=== PATIENT | male | born 1985 | race Caucasian/White ===

== ENCOUNTER 2018-12-15 21:35 | Emergency (ER) | payer SELFPAY ==
[~2018-12-15] VITALS: Ht 177.8 cm; Wt 68.0 kg
[~2018-12-15 21:35] MED LIST: CEPH-507 PO; HYDR-4226 PO
[2018-12-15 22:00] LABS: BASOPHILS # (AUTO) 0.1 10^3/uL (0.0-0.1); BASOPHILS % (AUTO) 1 % (0-10); EOSINOPHILS # (AUTO) 0.1 10^3/uL (0.0-0.3); EOSINOPHILS % (AUTO) 2 % (0-10); HEMATOCRIT 47 % (40-54); HEMOGLOBIN 15.8 G/DL (13.3-17.7); LYMPHOCYTES # (AUTO) 1.9 X 10^3 (1.0-4.0); LYMPHOCYTES % (AUTO) 34 % (12-44); MEAN CORPUSCULAR HEMOGLOBIN 30 PG (25-34); MEAN CORPUSCULAR HGB CONC 34 G/DL (32-36); MEAN CORPUSCULAR VOLUME 87 FL (80-99); MEAN PLATELET VOLUME 9.8 FL (7.4-10.4); MONOCYTES # (AUTO) 0.7 X 10^3 (0.0-1.0); MONOCYTES % (AUTO) 13 % (0-12); NEUTROPHILS # (AUTO) 2.9 X 10^3 (1.8-7.8); NEUTROPHILS % (AUTO) 50 % (42-75); PLATELET COUNT 307 10^3/uL (130-400); RED CELL DISTRIBUTION WIDTH 12.8 % (10.0-14.5); WHITE BLOOD COUNT 5.7 10^3/uL (4.3-11.0)
[2018-12-15] MEDS ORDERED: CYCLOBENZAPRINE 10 MG (FLEXERIL) TAB PO SCH (22:00)
[2018-12-15 22:11] LABS: INR 0.8 (0.8-1.4); PROTHROMBIN TIME PATIENT 11.8 SEC (12.2-14.7)
[2018-12-15 22:19] LABS: ALANINE AMINOTRANSFERASE 23 U/L (0-55); ALKALINE PHOSPHATASE 76 U/L (40-136); BILIRUBIN,TOTAL 0.3 MG/DL (0.1-1.0); BUN/CREATININE RATIO 8; CALCIUM 10.2 MG/DL (8.5-10.1); CARBON DIOXIDE 27 MMOL/L (21-32); CHLORIDE 102 MMOL/L (98-107); CREATININE SERUM 1.17 MG/DL (0.60-1.30); GFR ESTIMATED > 60; GLUCOSE 85 MG/DL (70-105); MAGNESIUM 2.6 MG/DL (1.8-2.4); POTASSIUM 3.8 MMOL/L (3.6-5.0); SODIUM 140 MMOL/L (135-145); TOTAL PROTEIN 7.9 GM/DL (6.4-8.2)
--- NOTE | 2018-12-15 22:33 | ED Chest Pain ---
General Chief Complaint: Chest Wall Stated Complaint: PULLING FEELING IN CHEST Nursing Triage Note: PT AMB TO ROOM #7 W/O DIFFICULTY. A&OX4. C/O LT SIDED CHEST WALL DISCOMFORT FOR X2 DAYS. PT REPORTS X2 DAYS AGO HE PULLED A MUSCLE IN HIS LT CHEST WALL AND BEGAN TO FEEL SOB THROUGHOUT THIS DAY. REPORTS INTERMITTENT DRY COUGH. DENIES CARDIAC HX. Nursing Sepsis Screen: No Definite Risk Source: patient Exam Limitations: no limitations History of Present Illness Date Seen by Provider: Dec 15, 2018 Time Seen by Provider: 21:43 Initial Comments 33-year-old male who presents to the emergency room with complaints of left- sided chest wall pain and discomfort for the past 2 days. He reports that he was lifting something heavy 2 days ago when he pulled a muscle in his chest but began to pain with deep breathing throughout the day. He denies dizziness or lightheadedness, or cardiac history. Timing/Duration: 2-3 days Severity/Quality: tightness Prior CP/Workup: no prior chest pain Associated Symptoms: denies symptoms Allergies and Home Medications Allergies Coded Allergies: ibuprofen (Unverified Allergy, Unknown, 12/16/15) Home Medications Cephalexin 500 Mg Capsule, 500 MG PO TID Prescribed by: KLAUDIA DAWN on 12/16/15 181 Cyclobenzaprine HCl 10 Mg Tablet, 10 MG PO TID PRN for MUSCLE SPASMS Prescribed by: JENNA JUNG on 12/15/18 223 Hydrocodone/Acetaminophen 1 Each Tablet, 1 EACH PO Q4H PRN for PAIN Prescribed by: KLAUDIA DAWN on 12/16/15 181 Patient Home Medication List Home Medication List Reviewed: Yes Review of Systems Review of Systems Constitutional: see HPI; No chills, No fever Cardiovascular: See HPI, Other (chest wall pain ) All Other Systems Reviewed Negative Unless Noted: Yes Past Kluwqvy-Fqnvzc-Menwle Hx Past Med/Social Hx: Reviewed Nursing Past Med/Soc Hx Patient Social History Alcohol Use: Denies Use Recreational Drug Use: Yes Drug of Choice: THC Smoking Status: Current Everyday Smoker Type Used: Cigarettes 2nd Hand Smoke Exposure: Yes Recent Foreign Travel: No Contact w/Someone Who Travel: No Recent Infectious Disease Expo: No Seasonal Allergies Seasonal Allergies: No Past Medical History Surgeries: No Respiratory: No Cardiac: No Neurological: No Reproductive Disorders: No Gastrointestinal: No Musculoskeletal: No Endocrine: No Cancer: No Psychosocial: No Integumentary: No Blood Disorders: No Family Medical History Reviewed Nursing Family Hx Physical Exam Vital Signs Vital Signs - First Documented 12/15/18 21:42 Temp 98.0 Pulse 86 Resp 18 B/P (MAP) 138/84 (102) Pulse Ox 99 O2 Delivery Room Air Capillary Refill : Less Than 3 Seconds Height, Weight, BMI Height: 5'10.00" Weight: 150lbs. oz. 68.522978kl; BMI Method:Stated General Appearance: No Apparent Distress, WD/WN Neck: Full Range of Motion, Normal Inspection, Non Tender Respiratory: Lungs Clear, Normal Breath Sounds, No Accessory Muscle Use, No Respiratory Distress, Other (chest wall tenderness ) Cardiovascular: Regular Rate, Rhythm, No Edema, No Gallop, No JVD, No Murmur, Normal Peripheral Pulses Gastrointestinal: Normal Bowel Sounds, No Organomegaly, No Pulsatile Mass, Non Tender Extremity: Normal Capillary Refill Neurologic/Psychiatric: Alert, Oriented x3, Normal Mood/Affect Skin: Normal Color, Warm/Dry Progress/Results/Core Measures Results/Orders Lab Results Laboratory Tests Test 12/15/18 21:53 Range/Units White Blood Count 5.7 4.3-11.0 10^3/uL Red Blood Count 5.36 4.35-5.85 10^6/uL Hemoglobin 15.8 13.3-17.7 G/DL Hematocrit 47 40-54 % Mean Corpuscular Volume 87 80-99 FL Mean Corpuscular Hemoglobin 30 25-34 PG Mean Corpuscular Hemoglobin Concent 34 32-36 G/DL Red Cell Distribution Width 12.8 10.0-14.5 % Platelet Count 307 130-400 10^3/uL Mean Platelet Volume 9.8 7.4-10.4 FL Neutrophils (%) (Auto) 50 42-75 % Lymphocytes (%) (Auto) 34 12-44 % Monocytes (%) (Auto) 13 H 0-12 % Eosinophils (%) (Auto) 2 0-10 % Basophils (%) (Auto) 1 0-10 % Neutrophils # (Auto) 2.9 1.8-7.8 X 10^3 Lymphocytes # (Auto) 1.9 1.0-4.0 X 10^3 Monocytes # (Auto) 0.7 0.0-1.0 X 10^3 Eosinophils # (Auto) 0.1 0.0-0.3 10^3/uL Basophils # (Auto) 0.1 0.0-0.1 10^3/uL Prothrombin Time 11.8 L 12.2-14.7 SEC INR Comment 0.8 0.8-1.4 Activated Partial Thromboplast Time 32 24-35 SEC Sodium Level 140 135-145 MMOL/L Potassium Level 3.8 3.6-5.0 MMOL/L Chloride Level 102 98-107 MMOL/L Carbon Dioxide Level 27 21-32 MMOL/L Anion Gap 11 5-14 MMOL/L Blood Urea Nitrogen 9 7-18 MG/DL Creatinine 1.17 0.60-1.30 MG/DL Estimat Glomerular Filtration Rate > 60 BUN/Creatinine Ratio 8 Glucose Level 85 70-105 MG/DL Calcium Level 10.2 H 8.5-10.1 MG/DL Corrected Calcium 8.5-10.1 MG/DL Magnesium Level 2.6 H 1.8-2.4 MG/DL Total Bilirubin 0.3 0.1-1.0 MG/DL Aspartate Amino Transf (AST/SGOT) 20 5-34 U/L Alanine Aminotransferase (ALT/SGPT) 23 0-55 U/L Alkaline Phosphatase 76 40-136 U/L Myoglobin 44.1 10.0-92.0 NG/ML Troponin I < 0.028 <0.028 NG/ML Total Protein 7.9 6.4-8.2 GM/DL Albumin 5.0 H 3.2-4.5 GM/DL My Orders Orders - BERNOT,JENNA Cbc With Automated Diff (12/15/18 21:43) Magnesium (12/15/18 21:43) Chest 1 View, Ap/Pa Only (12/15/18 21:43) Ekg Tracing (12/15/18 21:43) Cardiac Profile 1 (12/15/18 21:43) Comprehensive Metabolic Panel (12/15/18 21:43) Myoglobin Serum (12/15/18 21:43) Protime With Inr (12/15/18 21:43) Partial Thromboplastin Time (12/15/18 21:43) O2 (12/15/18 21:43) Monitor-Rhythm Ecg Trace Only (12/15/18 21:43) Ed Iv/Invasive Line Start (12/15/18 21:43) Cyclobenzaprine Tablet (Flexeril Tablet) (12/15/18 22:00) Vital Signs/I&O 12/15/18 12/15/18 21:42 22:50 Temp 98.0 98.0 Pulse 86 86 Resp 18 18 B/P (MAP) 138/84 (102) 120/68 (85) Pulse Ox 99 99 O2 Delivery Room Air Room Air Blood Pressure Mean: 102 Progress Progress Note : Time: 22:32 Progress Note I have seen and evaluated the patient. I have reviewed the lab, ekg, and imaging studies with him. His muscle tightness has resolved after Flexeril. He agrees with plan of care, plans for discharge, return precautions were given. Departure Impression Primary Impression: Chest wall pain Disposition: HOME, SELF-CARE Condition: Stable/Unchanged Departure-Patient Inst. Decision time for Depature: 22:32 Referrals: NO,LOCAL PHYSICIAN (PCP/Family) Primary Care Physician Patient Instructions: Pleuritic Chest Pain (DC) Add. Discharge Instructions: You may use Tylenol as directed by the bottle for pain relief. Use the muscle relaxers as needed for discomfort. Follow-up with your primary care provider within 1 week for recheck. Return back to the emergency room for worsening symptoms or concerns as needed. All discharge instructions reviewed with patient and/or family. Voiced understanding. Scripts Cyclobenzaprine HCl (Cyclobenzaprine HCl) 10 Mg Tablet 10 MG PO TID PRN for MUSCLE SPASMS, #14 TAB Prov: JENNA JUNG 12/15/18 JENNA JUNG Dec 15, 2018 22:32
[2018-12-15] MEDS ORDERED: CYCL10TA9 PO (22:34)
[2018-12-15 22:50] VITALS: BP 120/68
--- NOTE | 2018-12-16 06:35 | Diagnostic Imaging Report ---
INDICATION: Left-sided chest wall discomfort for 2 days. Pulled a muscle on his chest 2 days ago and started feeling shortness of breath today. FINDINGS: Frontal view of the chest demonstrates lungs to be clear. The heart, mediastinum, pulmonary vascularity and visualized bony thorax are normal. No pleural effusion or pneumothorax is present. IMPRESSION: Normal chest. Dictated by: Dictated on workstation # [id number]
== END 2018-12-15 22:50 | disposition home or self-care (01) ==
LOC: EDUNIT# 21:35 → ER 21:36
DX: R07.89 Other chest pain (principal); F12.10 Cannabis abuse, uncomplicated; F17.210 Nicotine dependence, cigarettes, uncomplicated; Z88.6 Allergy status to analgesic agent
CPT/HCPCS: 36415; 71045; 80053; 83735; 83874; 84484; 85025; 85610; 85730; 93005; 93041

== ENCOUNTER 2020-09-05 20:36 | Emergency (ER) | payer SELFPAY ==
[~2020-09-05] VITALS: Ht 177.8 cm; Wt 72.6 kg
[~2020-09-05 20:36] MED LIST changes: +CYCL10TA9 PO
[2020-09-05] MEDS ORDERED: ASPIRIN 81 MG CHEW (CHILDREN'S ASA) PO ONE (20:45)
[2020-09-05 20:52] LABS: BASOPHILS # (AUTO) 0.1 10^3/uL (0.0-0.1); BASOPHILS % (AUTO) 1 % (0-10); EOSINOPHILS # (AUTO) 0.1 10^3/uL (0.0-0.3); EOSINOPHILS % (AUTO) 2 % (0-10); HEMATOCRIT 43 % (40-54); HEMOGLOBIN 14.2 g/dL (13.3-17.7); LYMPHOCYTES # (AUTO) 2.5 10^3/uL (1.0-4.0); LYMPHOCYTES % (AUTO) 31 % (12-44); MEAN CORPUSCULAR HEMOGLOBIN 30 pg (25-34); MEAN CORPUSCULAR HGB CONC 33 g/dL (32-36); MEAN CORPUSCULAR VOLUME 89 fL (80-99); MEAN PLATELET VOLUME 9.7 fL (9.0-12.2); MONOCYTES # (AUTO) 0.7 10^3/uL (0.0-1.0); MONOCYTES % (AUTO) 8 % (0-12); NEUTROPHILS # (AUTO) 4.6 10^3/uL (1.8-7.8); NEUTROPHILS % (AUTO) 58 % (42-75); PLATELET COUNT 345 10^3/uL (130-400); WHITE BLOOD COUNT 7.9 10^3/uL (4.3-11.0)
--- NOTE | 2020-09-05 20:54 | ED Chest Pain ---
General Stated Complaint: CHEST PAIN;L ARM NUMBNESS Source: patient History of Present Illness Date Seen by Provider: Sep 05, 2020 Time Seen by Provider: 20:40 Initial Comments PT ARRIVES VIA POV FROM HOME C/O LEFT CHEST PAIN AND LEFT ARM NUMBNESS X 1 HOUR BEGAN WHILE SITTING ON BED, PLAYING ON PHONE NOTHING WORSENS OR IMPROVES PAIN HAS NOT TAKEN ANYTHING FOR PAIN NO SWEATS NO SHORTNESS OF BREATH NO SWELLING IN LEGS/ FEET OR PAIN IN CALVES NO NAUSEA/VOMITING/DIARRHEA C/O ANXIETY NO FEVER OR RECENT ILLNESS NO GI SYMPTOMS NO LOSS OF TASTE/SMELL NO HEADACHE NO BODY ACHES NO KNOWN EXPOSURE TO COVID-19 HAS HISTORY OF SAME--SEEN HERE IN 2019 FOR THIS AND WAS DX WITH CHEST WALL PAIN AND ANXIETY. Allergies and Home Medications Allergies Coded Allergies: ibuprofen (Unverified Allergy, Unknown, 12/16/15) Home Medications Cephalexin 500 Mg Capsule, 500 MG PO TID Prescribed by: KLAUDIA DAWN on 12/16/151811 Cyclobenzaprine HCl 10 Mg Tablet, 10 MG PO TID PRN for MUSCLE SPASMS Prescribed by: JENNA JUNG on 12/15/182233 Fluconazole 200 Mg Tablet, 200 MG PO DAILY Prescribed by: DOMINICK SANCHEZ on 09/05/202143 Hydrocodone/Acetaminophen 1 Each Tablet, 1 EACH PO Q4H PRN for PAIN Prescribed by: KLAUDIA DAWN on 12/16/151809 Hydroxyzine Pamoate 50 Mg Capsule, 50 MG PO Q6H PRN for ANXIETY Prescribed by: DOMINICK SANCHEZ on 09/05/202143 Methylprednisolone 4 Mg Tab.ds.pk, 4 MG PO UD PER DOSE PACK INSTRUCTIONS Prescribed by: DOMINICK SANCHEZ on 09/05/202143 Nitrofurantoin Monohyd/M-Cryst 100 Mg Capsule, 1 TAB PO BID Prescribed by: DOMINICK SANCHEZ on 09/05/202143 Patient Home Medication List Home Medication List Reviewed: Yes Review of Systems Review of Systems Constitutional: no symptoms reported EENTM: No Symptoms Reported Respiratory: No Symptoms Reported Cardiovascular: See HPI, Chest Pain Gastrointestinal: No Symptoms Reported Genitourinary: No Symptoms Reported Musculoskeletal: see HPI Skin: no symptoms reported Psychiatric/Neurological: See HPI, Anxiety, Paresthesia Endocrine: No Symptoms Reported Hematologic/Lymphatic: No Symptoms Reported Past Hoocool-Nmojlg-Lifejd Hx Past Med/Social Hx: Reviewed and Corrections made Patient Social History Alcohol Use: Denies Use Recreational Drug Use: Yes (THC, METH, OPIATES, BENZO'S) Drug of Choice: THC, METH, OPIATES, BENZO'S Smoking Status: Current Everyday Smoker (1/2 PPD) Type Used: Cigarettes 2nd Hand Smoke Exposure: Yes Seasonal Allergies Seasonal Allergies: No Past Medical History Surgeries: No Respiratory: No Cardiac: No Neurological: No Reproductive Disorders: No Genitourinary: No Gastrointestinal: No Musculoskeletal: No Endocrine: No HEENT: No Cancer: No Psychosocial: Yes Anxiety Integumentary: No Blood Disorders: No Physical Exam Vital Signs Vital Signs - First Documented 09/05/20 20:40 Temp 36.2 Pulse 83 Resp 18 B/P (MAP) 149/102 (118) Pulse Ox 100 O2 Delivery Room Air Capillary Refill : Height, Weight, BMI Height: 5'10.00" Weight: 150lbs. oz. 68.326112sd; BMI Method:Stated General Appearance: No Apparent Distress, WD/WN, Anxious, Other (CONSTANT MOVEMENTS, DIFFICULT TO KEEP ON SUBJECT, MALODOROUS) HEENT: PERRL/EOMI Neck: Full Range of Motion, Normal Inspection, Non Tender, Supple Respiratory: Normal Breath Sounds, No Accessory Muscle Use, No Respiratory Distress, Other (LEFT UPPER CHEST TENDER TO PALPATION--REPRODUCES PAIN ) Cardiovascular: Regular Rate, Rhythm, No Edema, No JVD, No Murmur, Normal Peripheral Pulses Gastrointestinal: Non Tender, Soft Extremity: Normal Capillary Refill, Normal Inspection, Normal Range of Motion, Non Tender, No Calf Tenderness, No Pedal Edema Neurologic/Psychiatric: Alert, Oriented x3, No Motor/Sensory Deficits, filing or registry clerk II- XII Norm as Tested Skin: Normal Color, Warm/Dry, Tattoos/Piercings Progress/Results/Core Measures Results/Orders Lab Results Laboratory Tests Test 09/05/20 20:40 09/05/20 21:00 Range/Units White Blood Count 7.9 4.3-11.0 10^3/uL Red Blood Count 4.82 4.30-5.52 10^6/uL Hemoglobin 14.2 13.3-17.7 g/dL Hematocrit 43 40-54 % Mean Corpuscular Volume 89 80-99 fL Mean Corpuscular Hemoglobin 30 25-34 pg Mean Corpuscular Hemoglobin Concent 33 32-36 g/dL Red Cell Distribution Width 11.8 10.0-14.5 % Platelet Count 345 130-400 10^3/uL Mean Platelet Volume 9.7 9.0-12.2 fL Immature Granulocyte % (Auto) 0 % Neutrophils (%) (Auto) 58 42-75 % Lymphocytes (%) (Auto) 31 12-44 % Monocytes (%) (Auto) 8 0-12 % Eosinophils (%) (Auto) 2 0-10 % Basophils (%) (Auto) 1 0-10 % Neutrophils # (Auto) 4.6 1.8-7.8 10^3/uL Lymphocytes # (Auto) 2.5 1.0-4.0 10^3/uL Monocytes # (Auto) 0.7 0.0-1.0 10^3/uL Eosinophils # (Auto) 0.1 0.0-0.3 10^3/uL Basophils # (Auto) 0.1 0.0-0.1 10^3/uL Immature Granulocyte # (Auto) 0.0 0.0-0.1 10^3/uL Prothrombin Time 13.0 12.2-14.7 SEC INR Comment 0.9 0.8-1.4 Activated Partial Thromboplast Time 31 24-35 SEC Sodium Level 140 135-145 MMOL/L Potassium Level 3.8 3.6-5.0 MMOL/L Chloride Level 104 98-107 MMOL/L Carbon Dioxide Level 27 21-32 MMOL/L Anion Gap 9 5-14 MMOL/L Blood Urea Nitrogen 12 7-18 MG/DL Creatinine 1.08 0.60-1.30 MG/DL Estimat Glomerular Filtration Rate > 60 BUN/Creatinine Ratio 11 Glucose Level 100 70-105 MG/DL Calcium Level 9.6 8.5-10.1 MG/DL Corrected Calcium 9.2 8.5-10.1 MG/DL Magnesium Level 2.4 1.6-2.4 MG/DL Total Bilirubin 0.3 0.1-1.0 MG/DL Aspartate Amino Transf (AST/SGOT) 22 5-34 U/L Alanine Aminotransferase (ALT/SGPT) 26 0-55 U/L Alkaline Phosphatase 66 40-136 U/L Total Creatine Kinase 77 30-200 U/L Creatine Kinase MB 1.0 <6.6 NG/ML Myoglobin 39.6 10.0-92.0 NG/ML Troponin I < 0.028 <0.028 NG/ML B-Type Natriuretic Peptide < 10.0 <100.0 PG/ML Total Protein 7.4 6.4-8.2 GM/DL Albumin 4.5 3.2-4.5 GM/DL Amylase Level 48 25-125 U/L Lipase 28 8-78 U/L Serum Alcohol < 10 <10 MG/DL Urine Color YELLOW Urine Clarity CLEAR Urine pH 7.0 5-9 Urine Specific [place] 1.020 1.016-1.022 Urine Protein NEGATIVE NEGATIVE Urine Glucose (UA) NEGATIVE NEGATIVE Urine Ketones NEGATIVE NEGATIVE Urine Nitrite NEGATIVE NEGATIVE Urine Bilirubin NEGATIVE NEGATIVE Urine Urobilinogen 0.2 < = 1.0 MG/DL Urine Leukocyte Esterase NEGATIVE NEGATIVE Urine RBC (Auto) NEGATIVE NEGATIVE Urine RBC 0-2 /HPF Urine WBC 2-5 /HPF Urine Squamous Epithelial Cells 0-2 /HPF Urine Crystals PRESENT H /LPF Urine Amorphous Sediment FEW LINDSEY PHOSPHATE H /LPF Urine Bacteria LARGE H /HPF Urine Casts NONE /LPF Urine Mucus NEGATIVE /LPF Urine Yeast MODERATE H /HPF Urine Culture Indicated YES Urine Opiates Screen POSITIVE H NEGATIVE Urine Oxycodone Screen NEGATIVE NEGATIVE Urine Methadone Screen NEGATIVE NEGATIVE Urine Propoxyphene Screen NEGATIVE NEGATIVE Urine Barbiturates Screen NEGATIVE NEGATIVE Ur Tricyclic Antidepressants Screen NEGATIVE NEGATIVE Urine Phencyclidine Screen NEGATIVE NEGATIVE Urine Amphetamines Screen POSITIVE H NEGATIVE Urine Methamphetamines Screen POSITIVE H NEGATIVE Urine Benzodiazepines Screen POSITIVE H NEGATIVE Urine Cocaine Screen NEGATIVE NEGATIVE Urine Cannabinoids Screen POSITIVE H NEGATIVE My Orders Orders - DOMINICK SANCHEZ DO Cbc With Automated Diff (09/05/20 20:41) Magnesium (09/05/20 20:41) Chest 1 View, Ap/Pa Only (09/05/20 20:41) Ekg Tracing (09/05/20 20:41) Comprehensive Metabolic Panel (09/05/20 20:41) Myoglobin Serum (09/05/20 20:41) Protime With Inr (09/05/20 20:41) Partial Thromboplastin Time (09/05/20 20:41) Monitor-Rhythm Ecg Trace Only (09/05/20 20:41) Ed Iv/Invasive Line Start (09/05/20 20:41) Creatine Kinase (09/05/20 20:41) Creatine Kinase Mb (09/05/20 20:41) Lipase (09/05/20 20:41) Amylase (09/05/20 20:41) BNP (09/05/20 20:41) Aspirin Chewable Tablet (Baby Aspirin Ch (09/05/20 20:45) Drug Screen Stat (Urine) (09/05/20 20:41) Ua Culture If Indicated (09/05/20 20:41) Alcohol (09/05/20 20:40) Troponin I (09/05/20 20:40) Urine Culture (09/05/20 21:00) Medications Given in ED Current Medications Medications Dose Ordered Sig/Yaakov Route Start Time Stop Time Status Last Admin Dose Admin Aspirin 324 mg ONCE ONCE PO 09/05/20 20:45 09/05/20 20:46 DC 09/05/20 20:52 324 MG Vital Signs/I&O 09/05/20 20:40 Temp 36.2 Pulse 83 Resp 18 B/P (MAP) 149/102 (118) Pulse Ox 100 O2 Delivery Room Air Progress Progress Note : Progress Note UNEVENTFUL ER STAY NO PAIN AT DISMISSAL Initial ECG Impression Date: Sep 05, 2020 Initial ECG Impression Time: 20:40 Initial ECG Rate: 78 Initial ECG Rhythm: Normal Sinus Initial ECG Impression: Normal Diagnostic Imaging Comments CXR--PER RADIOLOGIST REPORT AT 2136 IMPRESSION: Negative chest. Reviewed: Reviewed by Me Departure Impression Primary Impression: Chest wall pain Additional Impressions: Anxiety UTI (urinary tract infection) Yeast UTI Illicit drug use Disposition: HOME, SELF-CARE Condition: Stable Departure-Patient Inst. Referrals: NO,LOCAL PHYSICIAN (PCP/Family) Primary Care Physician Patient Instructions: Anxiety, Adult (DC), Costochondritis (DC), Drug Abuse and Drug Addiction (DC), Urinary Tract Infection, Adult ED, Yeast Infection (DC) Add. Discharge Instructions: NO DRUGS!!!!! HOME, REST LOTS OF CLEAR LIQUIDS FOLLOW UP WITH THIS WEEK FOR FURTHER CARE--LIST PROVIDED, RETURN TO ER IF SYMPTOMS WORSEN Scripts Methylprednisolone (Medrol) 4 Mg Tab.ds.pk 4 MG PO UD for 6 Days, #21 PKG PER DOSE PACK INSTRUCTIONS Prov: DOMINICK SANCHEZ DO 09/05/20 Fluconazole (Diflucan) 200 Mg Tablet 200 MG PO DAILY, #7 TAB Prov: LAURADOMINICK K DO 09/05/20 Nitrofurantoin Monohyd/M-Cryst (Macrobid 100 mg Capsule) 100 Mg Capsule 1 TAB PO BID, #20 CAP Prov: DOMINICK SANCHEZ DO 09/05/20 Hydroxyzine Pamoate (Hydroxyzine Pamoate) 50 Mg Capsule 50 MG PO Q6H PRN for ANXIETY, #15 CAP Prov: DOMINICK SANCHEZ DO 09/05/20 Work/School Note: Local [employer] Listing DOMINICK SANCHEZ DO Sep 05, 2020 20:54
[2020-09-05 21:03] LABS: INR 0.9 (0.8-1.4)
[2020-09-05 21:17] LABS: ALANINE AMINOTRANSFERASE 26 U/L (0-55); ALBUMIN 4.5 GM/DL (3.2-4.5); ALKALINE PHOSPHATASE 66 U/L (40-136); AMYLASE 48 U/L (25-125); BILIRUBIN,TOTAL 0.3 MG/DL (0.1-1.0); BUN/CREATININE RATIO 11; CALCIUM 9.6 MG/DL (8.5-10.1); CARBON DIOXIDE 27 MMOL/L (21-32); CHLORIDE 104 MMOL/L (98-107); CREATINE KINASE 77 U/L (30-200); CREATININE SERUM 1.08 MG/DL (0.60-1.30); GFR ESTIMATED > 60; GLUCOSE 100 MG/DL (70-105); LIPASE 28 U/L (8-78); MAGNESIUM 2.4 MG/DL (1.6-2.4); POTASSIUM 3.8 MMOL/L (3.6-5.0); SODIUM 140 MMOL/L (135-145); TOTAL PROTEIN 7.4 GM/DL (6.4-8.2)
--- NOTE | 2020-09-05 21:29 | Diagnostic Imaging Report ---
EXAM: chest 1 view, AP/PA only. INDICATION: Chest pain. COMPARISON: Chest radiograph 12/15/2018. FINDINGS: Normal heart size and pulmonary vascularity. No dense consolidation, pleural effusion or pneumothorax. No acute osseous finding. IMPRESSION: Negative chest. Dictated by: Dictated on workstation # [id number]
[2020-09-05 21:30] LABS: BILIRUBIN,URINE NEGATIVE (NEGATIVE); CLARITY,URINE CLEAR; COLOR,URINE YELLOW; GLUCOSE, URINE (UA) NEGATIVE (NEGATIVE); KETONES,URINE NEGATIVE (NEGATIVE); LEUKOCYTE ESTERASE ,URINE NEGATIVE (NEGATIVE); NITRITE,URINE NEGATIVE (NEGATIVE); PROTEIN,URINE NEGATIVE (NEGATIVE)
[2020-09-05 21:36] LABS: BACTERIA,URINE LARGE /HPF; RBC,URINE 0-2 /HPF; SQUAMOUS EPITHELIAL CELL,UR 0-2 /HPF
[2020-09-05 21:37] LABS: AMORPHOUS SEDIMENT,UR FEW AMOR PHOSPHATE /LPF; YEAST,URINE MODERATE /HPF
[2020-09-05 21:44] LABS: AMPHETAMINE SCREEN, URINE POSITIVE (NEGATIVE); BENZODIAZEPINES SCREEN URINE POSITIVE (NEGATIVE); CANNABINOID SCREEN, URINE POSITIVE (NEGATIVE); COCAINE SCREEN URINE NEGATIVE (NEGATIVE); METHAMPHETAMINE SCREEN URINE S POSITIVE (NEGATIVE); OPIATE SCREEN URINE POSITIVE (NEGATIVE)
[2020-09-05] MEDS ORDERED: METH4TAB PO (21:44)
[2020-09-05] MEDS ORDERED: NITR-65 PO (21:44)
[2020-09-05] MEDS ORDERED: FLUC200T PO (21:44)
[2020-09-05] MEDS ORDERED: HYDR50CA3 PO (21:44)
[2020-09-05 21:45] LABS: BARBITURATE SCREEN URINE NEGATIVE (NEGATIVE); METHADONE STAT NEGATIVE (NEGATIVE); OXYCODONE STAT NEGATIVE (NEGATIVE); PROPOXYPHENE STAT NEGATIVE (NEGATIVE); TRICYCLIC ANTIDEPRESSANTS SCRE NEGATIVE (NEGATIVE)
[2020-09-05 21:56] VITALS: BP 145/108
== END 2020-09-05 21:56 | disposition home or self-care (01) ==
LOC: EDUNIT# 20:36 → ER 20:38
DX: R07.89 Other chest pain (principal); F41.9 Anxiety disorder, unspecified; N39.0 Urinary tract infection, site not specified; F19.90 Other psychoactive substance use, unspecified, uncomplicated; F17.210 Nicotine dependence, cigarettes, uncomplicated; Z88.6 Allergy status to analgesic agent; Z79.52 Long term (current) use of systemic steroids
CPT/HCPCS: 71045; 80053; 80306; 81000; 82150; 82550; 82553; 83690; 83735; 83874; 83880; 84484; 85025; 85610; 85730; 87088; 93005; 93041; 99284; G0480; 36415; 80320

== ENCOUNTER 2021-03-21 21:55 | Emergency (ER) | payer SELFPAY ==
[~2021-03-21] VITALS: Ht 180.3 cm; Wt 70.3 kg
[~2021-03-21 21:55] MED LIST changes: +FLUC200T PO; +HYDR50CA3 PO; +METH4TAB PO; +NITR-65 PO
--- NOTE | 2021-03-21 22:59 | ED General ---
General Chief Complaint: Bite-Animal/Human/Insect Stated Complaint: L FOREARM BITE Nursing Triage Note: PT AMBULATE TO ROOM 06 WITH C/O BITE/STING/POKE FROM SOMETHING. PT STATES HE WAS MOVING BRUSH AND FELT A STING TO LEFT FOREARM. PT AMBULATE FROM WAITING ROOM WHERE HE HAS A BELT TIED AROUND LEFT ARM A MEANS TO CUT OFF THE POSION FROM REACHING THE REST OF HIS BODY. PT REMOVED BELT ENTERING THE ROOM. RAISED, BRUISED AREA NOTED TO INSIDE OF LEFT FOREARM. Source of Information: Patient Exam Limitations: No Limitations History of Present Illness Date Seen by Provider: Mar 21, 2021 Time Seen by Provider: 22:52 Initial Comments This 35-year-old man presents to the emergency room with a bite or sting on the left arm. He was reaching into a boyd doing some yard cleanup when this occurred. He has a small darkened lesion on the skin with a bruised ring shaped lesion adjacent to it on the left mid arm. He was concerned about "poison" en tering his body from the site so he applied a tourniquet. This was removed when he presented to the ER. He is having no systemic symptoms. Allergies and Home Medications Allergies Coded Allergies: ibuprofen (Unverified Allergy, Unknown, 12/16/15) Home Medications Cephalexin 500 Mg Capsule, 500 MG PO TID Prescribed by: KLAUDIA DAWN on 12/16/151811 Cyclobenzaprine HCl 10 Mg Tablet, 10 MG PO TID PRN for MUSCLE SPASMS Prescribed by: JENNA JUNG on 12/15/182233 Fluconazole 200 Mg Tablet, 200 MG PO DAILY Prescribed by: DOMINICK SANCHEZ on 09/05/202143 Hydrocodone/Acetaminophen 1 Each Tablet, 1 EACH PO Q4H PRN for PAIN Prescribed by: KLAUDIA DAWN on 12/16/151809 Hydroxyzine Pamoate 50 Mg Capsule, 50 MG PO Q6H PRN for ANXIETY Prescribed by: DOMINICK SANCHEZ on 09/05/202143 Methylprednisolone 4 Mg Tab.ds.pk, 4 MG PO UD PER DOSE PACK INSTRUCTIONS Prescribed by: DOMINICK SANCHEZ on 09/05/202143 Nitrofurantoin Monohyd/M-Cryst 100 Mg Capsule, 1 TAB PO BID Prescribed by: DOMINICK SANCHEZ on 09/05/202143 Patient Home Medication List Home Medication List Reviewed: Yes Review of Systems Review of Systems Constitutional: no symptoms reported EENTM: no symptoms reported Respiratory: no symptoms reported Cardiovascular: no symptoms reported Gastrointestinal: no symptoms reported Genitourinary: no symptoms reported Musculoskeletal: no symptoms reported Skin: see HPI Psychiatric/Neurological: No Symptoms Reported Hematologic/Lymphatic: No Symptoms Reported Past Lfmvdcc-Nrhsov-Rbtlle Hx Patient Social History Tobacco Use?: Yes Tobacco type used: Cigarettes Smoking Status: Current Everyday Smoker Use of E-Cig and/or Vaping dev: No Use of E-Cig and/or Vaping Dipesh: Never a User Substance use?: Yes Substance type: Opiates/Opioids, Marijuana Alcohol Use?: Yes Pt feels they are or have been: No Seasonal Allergies Seasonal Allergies: No Past Medical History Surgeries: No Respiratory: No Cardiac: No Neurological: No Reproductive Disorders: No Genitourinary: No Gastrointestinal: No Musculoskeletal: No Endocrine: No HEENT: No Cancer: No Psychosocial: Yes Anxiety Integumentary: No Blood Disorders: No Physical Exam Vital Signs Vital Signs - First Documented 03/21/21 03/21/21 22:07 23:00 Temp 35.9 Pulse 96 Resp 17 B/P (MAP) 128/82 (97) Pulse Ox 99 O2 Delivery Room Air Capillary Refill : Less Than 3 Seconds Height, Weight, BMI Height: 5'10.00" Weight: 150lbs. oz. 68.532329tx; 21.00 BMI Method:Stated General Appearance: No Apparent Distress, WD/WN Respiratory: Lungs Clear, Normal Breath Sounds, No Accessory Muscle Use Cardiovascular: Regular Rate, Rhythm, No Edema, No Murmur Extremity: Other (There is a small subcentimeter darkened area at the site of concern with a ring shaped parents of bruise adjacent to it. There is mild tenderness. No significant swelling. Distal exam is unremarkable with normal radial pulse and sensation.) Progress/Results/Core Measures Suspected Sepsis SIRS Temperature: Pulse: 96 Respiratory Rate: 17 Blood Pressure 128 /82 Mean: 97 Results/Orders Vital Signs/I&O 03/21/21 03/21/21 22:07 23:00 Temp 35.9 Pulse 96 73 Resp 17 18 B/P (MAP) 128/82 (97) 122/81 Pulse Ox 99 O2 Delivery Room Air Room Air Capillary Refill : Less Than 3 Seconds Blood Pressure Mean: 97 Progress Note : Progress Note History and exam consistent with insect sting such as wasp sting. See discharge instructions. Departure Impression Primary Impression: Insect sting Qualified Codes: T63.481A - Toxic effect of venom of other arthropod, accidental (unintentional), initial encounter Disposition: 01 HOME, SELF-CARE Condition: Stable Departure-Patient Inst. Decision time for Depature: 22:58 Referrals: NO,LOCAL PHYSICIAN (PCP/Family) Primary Care Physician Patient Instructions: Insect Bites and Stings ED Add. Discharge Instructions: Use Tylenol (acetaminophen) up to 1000 mg every 6 hours as needed for primary pain control. You may additionally ice in 20-minute intervals to help with pain and swelling. If you have itching, you may use an antihistamine such as Benadryl (diphenhydramine) or Claritin (loratadine). Follow instructions on the package. Call with questions or concerns. Return to the ER if you have worsening symptoms. All discharge instructions reviewed with patient and/or family. Voiced understanding. PARVIZ CLANCY MD Mar 21, 2021 22:59
[2021-03-21 23:00] VITALS: BP 122/81
== END 2021-03-21 23:00 | disposition home or self-care (01) ==
LOC: EDUNIT# 21:55 → ER 21:57
DX: S40.862A Insect bite (nonvenomous) of left upper arm, initial encounter (principal); F41.9 Anxiety disorder, unspecified; F17.210 Nicotine dependence, cigarettes, uncomplicated; Z79.899 Other long term (current) drug therapy; Z79.52 Long term (current) use of systemic steroids; W57.XXXA Bitten or stung by nonvenomous insect and other nonvenomous arthropods, initial encounter
CPT/HCPCS: 99283